=== PATIENT | female | born 1975 | race African-American/Black ===

== ENCOUNTER 2017-04-28 16:09 | Emergency (ER) | payer BC ==
[~2017-04-28] VITALS: Ht 180.3 cm; Wt 72.6 kg
[2017-04-28 16:20] VITALS: BP 135/87
== END 2017-04-28 18:25 | disposition home or self-care (01) ==
LOC: ER 16:10
DX: S63.502A Unspecified sprain of left wrist, initial encounter (principal); S60.011A Contusion of right thumb without damage to nail, initial encounter; W19.XXXA Unspecified fall, initial encounter; Y93.89 Activity, other specified; Y92.89 Other specified places as the place of occurrence of the external cause; Y99.9 Unspecified external cause status
CPT/HCPCS: 73110; A4606; Z7610